=== PATIENT | female | born 1980 | race African-American/Black ===

== ENCOUNTER 2017-03-14 19:35 | Emergency (ER) | payer OTHER ==
[~2017-03-14] VITALS: Ht 175.3 cm; Wt 72.6 kg
--- NOTE | ~2017-03-14 | CR230 ---
[facility]. [facility] A Service of [facility] & [facility] RADIOLOGY TEXT RESULTS PATIENT: JANENE CALIX LOCATION: SED : 82 UNIT #: [id number] AGE: [address]: Laurence Jackson SEX: F ORDER DR: [id number] [address] [address] [id number] E MR#: [id number] #: [id number] NAME: JANENE CALIX : 1980 SEX: F STUDY DATE/TIME: 03/14/2017 20:18 UNIT: SED ROOM: STUDY DESCRIPTION: CR Shoulder Min 2 View Rt Attending Physician: Laurence Jackson Pa-C Ordering Physician: Laurence Jackson Pa-C Primary Care Physician: No Primary Care Physician MEDICAL IMAGING REPORT This report is preliminary unless electronic signature is present. EXAM Right shoulder, 2 views, 03/14/2017. HISTORY Right shoulder pain with numbness extending to right fingers for 3 weeks. No known injury. FINDINGS AP view with internal and external rotation of the shoulder girdle shows satisfactory relationship of the humeral head and glenoid fossa. The joint space is normal. There is no identifiable fracture or dislocation or bony destructive process about the shoulder girdle anatomy. The acromioclavicular joint is normal. There is no radiopaque foreign body in the region. IMPRESSION Normal shoulder. Dictated by... Nahun Elizabeth M.D. THIS IS AN ELECTRONICALLY VERIFIED REPORT Nahun Elizabeth M.D. at 03/15/2017 2:23 PM JOE/maida TD: 03/15/2017 09:37 JOB #: [id number] MEDICAL IMAGING REPORT Page 1 of 1
[~2017-03-14 19:35] MED LIST: ALTACE PO; BACTRIM DS TABL1 TA1 PO; CIPRO PO; FLAGYL250 M1 PO; FLEXERIL10 M1 PO; KEFLEX500 M1 PO; NAPROSYN500 MG PO; NO MEDICATIONS; PEPCID PO; PHENERGAN25 MG PO; VISTARIL PO; VOLTAREN50 MG PO
== END 2017-03-14 21:33 | disposition home or self-care (01) ==
LOC: SED 19:35
DX: S16.1XXA Strain of muscle, fascia and tendon at neck level, initial encounter (principal); M54.41 Lumbago with sciatica, right side; F17.210 Nicotine dependence, cigarettes, uncomplicated; X58.XXXA Exposure to other specified factors, initial encounter
CPT/HCPCS: 73030; 99283